=== PATIENT | male | born 1955 | race Caucasian/White ===

== ENCOUNTER 2017-01-23 11:34 | Inpatient (IN) | payer OTHER ==
[~2017-01-23] VITALS: Ht 172.7 cm; Wt 86.2 kg
[2017-01-23] MEDS ORDERED: NIAC500T5 PO (11:51)
[2017-01-23] MEDS ORDERED: LISI10TA3 PO (11:51)
[2017-01-23] MEDS ORDERED: CLOR3.755 PO (12:22)
[2017-01-23] MEDS ORDERED: MULT-135 PO (12:22)
[2017-01-23] MEDS ORDERED: ZOLO50TA PO (12:22)
[2017-01-23] MEDS ORDERED: ATOR20TA15 PO (12:22)
[2017-01-23] MEDS ORDERED: METF500T PO (12:22)
[2017-01-23] MEDS ORDERED: GLUC100017 PO (12:22)
[2017-01-23] MEDS ORDERED: ASPI1TAB69 PO (12:22)
[2017-02-02] MEDS ORDERED: CHLORHEXIDINE GLUCONATE 2 % 1 PACK (2 CLOTHS) TOPICAL PRN (05:45)
[2017-02-02] MEDS ORDERED: SODIUM CHLORID 0.9% 500 ML IV PRN (05:45)
[2017-02-02] MEDS ORDERED: POVIDONE IODINE 5% (ANTISEPSIS KIT) 4 APPLICATIONS EACH NARE PRN (05:45)
[2017-02-02] MEDS ORDERED: INSULIN HUMAN REGULAR 1,000 UNITS/10 ML VIAL SQ PRN (05:45)
[2017-02-02] MEDS ORDERED: LACTATED RINGER'S 1000 ML IV PRN (05:45)
[2017-02-02] MEDS ORDERED: METOPROLOL TARTRATE 25 MG TAB PO PRN (05:45)
[2017-02-02 05:47] VITALS: BP 161/95; PULSE 88; RESP 16; TEMP 97.9; O2SAT 96
[2017-02-02] MEDS ORDERED: GENTAMICIN SULFATE 80 MG/2 ML VIAL ONE (06:08)
[2017-02-02] MEDS ORDERED: EXPAREL PERI-ARTICULAR INJECTION (TOTAL VOL. 60 ML) P-ARTICULR SCH ×2 (06:30)
[2017-02-02] MEDS ORDERED: CHLORHEXIDINE GLUCONATE 4% SOLN 120 ML BTL TOPICAL SCH (06:30)
[2017-02-02] MEDS ORDERED: TRANEXAMIC ACID INJ 795 MG in SODIUM CHLORIDE 0.9% INJ 100 ML IV SCH ×2 (06:30→10:00)
[2017-02-02] MEDS ORDERED: FAMOTIDINE 20 MG/2 ML VIAL ONE (06:33)
[2017-02-02] MEDS ORDERED: MIDAZOLAM HCL 2 MG/2 ML VIAL ONE ×2 (06:33→06:39)
[2017-02-02] MEDS ORDERED: ACETAMINOPHEN 1000 MG/100 ML VIAL IV ONE (06:39)
[2017-02-02] MEDS ORDERED: fentaNYL CITRATE 250 MCG/5 ML AMP ONE (06:40)
[2017-02-02] MEDS ORDERED: ACETAMINOPHEN/HYDROcodone 325 MG/7.5 MG TAB PO PRN ×2 (06:45)
[2017-02-02] MEDS ORDERED: MAGNESIUM HYDROXIDE SUSP 30 ML CUP PO PRN (06:45)
[2017-02-02] MEDS ORDERED: SODIUM CHLORIDE 0.9% FLUSH 5 ML FLUSH IVF PRN (06:45)
[2017-02-02] MEDS ORDERED: ZOLPIDEM TARTRATE 5 MG TAB PO PRN (06:45)
[2017-02-02] MEDS ORDERED: TRANEXAMIC ACID INJ 0 MG in SODIUM CHLORIDE 0.9% INJ 100 ML IV SCH (06:45)
[2017-02-02] MEDS ORDERED: Post-op Orders (for Pharmacy) MISC XX ONE (06:45)
[2017-02-02] MEDS ORDERED: ONDANSETRON HCL 4 MG/2 ML VIAL IVP PRN (06:45)
[2017-02-02] MEDS ORDERED: BISACODYL 10 MG SUPP RECTAL PRN (06:45)
[2017-02-02] MEDS ORDERED: CLINDAMYCIN INJ 900 MG in SODIUM CHLORIDE 0.9% INJ 100 ML IV SCH (06:45)
[2017-02-02] MEDS ORDERED: CLINDAMYCIN PHOS 900 MG/6 ML VIAL ONE (06:46)
[2017-02-02] MEDS ORDERED: MORPHINE SULFATE 4 MG/ML INJ IV PUSH PRN (07:30)
[2017-02-02] MEDS ORDERED: CLORAZEPATE 3.75 MG PO (07:45)
[2017-02-02] MEDS ORDERED: [UNRECOGNIZED DRUG - OTHER] PO (07:45)
[2017-02-02] MEDS ORDERED: NIACIN 100 MG TAB PO SCH (09:00)
[2017-02-02] MEDS: metFORMIN HCL 500 MG TAB PO SCH ×2 (09:00→17:51)
[2017-02-02] MEDS: SODIUM CHLORIDE 0.9% FLUSH 5 ML FLUSH IVF SCH ×2 (09:00→21:00)
[2017-02-02] MEDS: SERTRALINE HCL 50 MG TAB PO SCH (09:00)
[2017-02-02] MEDS ORDERED: NON-FORMULARY DRUG (Glucosamine 1,000 MG) PO SCH (09:00)
[2017-02-02] MEDS: LISINOPRIL 10 MG TAB PO SCH (09:00)
[2017-02-02] MEDS: MULTIVITAMIN TAB PO SCH (09:00)
--- NOTE | 2017-02-02 09:24 | HHI.FF ---
Face to Face Verification Diagnosis: (1) Status post total replacement of left hip Physical Therapy Gait training Hip: Total hip, Protocol: Left, Posterior hip precautions, Progress to weight bearing Canvas Knee Splint: When in bed & 2 pillows btw thighs Left LE Weight Bearing: WB as tolerated Left LE Range of Motion: Active ROM Nursing Nursing: Dressing changes Dressing Changes: Daily dressing change, Coverderm/Primapore Additional Instructions Remove steristrips on postop day 14. I have seen patient Bryce Rodriguez on 02/02/17. My clinical findings support the need for the requested home health care services because: Ltd mobility - disease progression Limited ability to care for self High risk of falls I certify that my clinical findings support that this patient is homebound because: Post-op weakness Unsteady gait/balance Unsafe to leave home unassisted Ting Garcia MD (Charles) February 02, 2017 09:24
[2017-02-02] MEDS: LACTATED RINGER'S 1000 ML INJ 1,000 ML IV SCH ×2 (09:33→22:05)
--- NOTE | 2017-02-02 09:52 | RADRPT ---
EXAM DATE/TIME: 02/02/2017 09:28 [facility] COMPARISON: No previous studies available for comparison. INDICATIONS : Post op left total hip. MEDICAL HISTORY : None. SURGICAL HISTORY : None. ENCOUNTER: Initial ACUITY: 1 day PAIN SCORE: Non-responsive. LOCATION: Left hip FINDINGS: AP and crosstable lateral views of the left hip were obtained and demonstrate the patient status post total hip arthroplasty. The femoral and acetabular components are intact and in normal alignment. Th ere is overlying soft tissue swelling and gas. CONCLUSION: Expected postoperative changes status post arthroplasty. Rufus Stevens MD on February 02, 2017 at 9:50 Board Certified Radiologist. This report was verified electronically.
[2017-02-02] MEDS ORDERED: ONDANSETRON HCL 4 MG/2 ML VIAL IV PUSH ONE (10:34)
[2017-02-02] MEDS ORDERED: PROPOFOL 200 MG/20 ML AMP IV ONE (10:34)
[2017-02-02] MEDS ORDERED: ePHEDrine/NS 25 MG/5 ML SYR IV ONE (10:34)
[2017-02-02] MEDS ORDERED: PHENYLEPH/NS 1000 MCG/10 ML SYR IV ONE (10:34)
[2017-02-02] MEDS ORDERED: LACTATED RINGER'S 1000 ML INJ 1,000 ML IV ONE (10:35)
[2017-02-02] MEDS ORDERED: DO NOT ADM ANY ANTICOAGULANT DRUGS PRN (11:45)
[2017-02-02] MEDS: KETOROLAC TROMETHAMINE 30 MG/ML (IVP) VIAL IVP SCH ×2 (15:18→22:04)
[2017-02-02 15:58] VITALS: BP 118/72; PULSE 85; RESP 17; TEMP 96.9; O2SAT 97
--- NOTE | 2017-02-02 16:05 | PD.CONS ---
HPI Service [facility] Hospitalists Consult Requested By Dr. Garcia Reason for Consult Medical management Primary Care Physician Ayesha Law MD Diagnoses: (1) Primary osteoarthritis of left hip (2) Status post total replacement of left hip History of Present Illness Mr. Rodriguez is a 61-year-old male with a known history of type 2 diabetes mellitus, hypertension, dyslipidemia and osteoarthritis of the left hip who underwent a left total hip replacement today 02/02 by Jose Mallory. Hospitalist team has been consulted for medical management. Patient seen and examined. Patient awake, alert and oriented x 3, with no new acute complaints. He states that his pain is well controlled. Denies any recent fever, chills, cough, shortness of breath, abdominal pain, nausea, vomiting, or dizziness. Patient has been tolerating PO intake well. Has been out of bed walking the halls with the walker. Patient does state he has urinated post operatively with no difficulty or complaints. Afebrile. Review of Systems Except as stated in HPI: all other systems reviewed are Neg Past Family Social History Allergies: Coded Allergies: Penicillin (Verified Allergy, Severe, 02/02/17) Sulfa (Verified Allergy, Severe, 02/02/17) Past Medical History Hyperlipidemia Hypertension Dyslipidemia History of atypical chest discomfort and angina. Past Surgical History Circumcision Tonsillectomy Reported Medications Active Reported Glucosamine (Glucosamine Sulfate) 1,000 Mg Cap 1,000 Mg PO DAILY Multi Vitamin (Multiple Vitamin) 1 Tab Tab 1 Tab PO DAILY Zoloft (Sertraline HCl) 50 Mg Tab 50 Mg PO DAILY Clorazepate (Clorazepate Dipotassium) 3.75 Mg Tab 3.75 Mg PO BID PRN Atorvastatin (Atorvastatin Calcium) 20 Mg Tab 20 Mg PO HS Metformin (Metformin HCl) 500 Mg Tab 250 Mg PO BIDPC With meals Aspirin 81 Mg Tabdr 81 Mg PO DAILY Niacin 500 Mg Tab 1,000 Mg PO DAILY Lisinopril 10 Mg Tab 10 Mg PO DAILY Active Ordered Medications Current Medications Medications (Trade) Dose Ordered Sig/Cassia Route Start Time Stop Time Status Last Admin Chlorhexidine Gluconate 1 applic 1 applic ONCE TOPICAL 02/02/17 06:30 02/05/17 06:29 Tranexamic Acid 795 mg/Sodium Chloride 107.95 ml @ 200 mls/ hr ONCE IV 02/02/17 06:30 02/03/17 06:29 02/02/17 07:01 Tranexamic Acid 795 mg/Sodium Chloride 107.95 ml @ 200 mls/ hr ONCE IV 02/02/17 10:00 02/03/17 09:59 02/02/17 11:17 Bupivacaine Liposome 20 ml/ Sodium Chloride 60 ml @ 120 mls/hr ONCE P-ARTICULR 02/02/17 06:30 02/03/17 06:29 02/02/17 07:22 (Lr 1000 ml Inj) 1,000 ml @ 80 mls/hr [id number] IV 02/02/17 08:00 02/02/17 09:33 (NS Flush) 2 ml UNSCH PRN IVF 02/02/17 06:45 (NS Flush) 2 ml BID IVF 02/02/17 09:00 (Morphine Inj) 4 mg Q3H PRN IV PUSH 02/02/17 07:30 ([place] 7.5-325 Mg) 1 tab Q4H PRN PO 02/02/17 06:45 ([place] 7.5-325 Mg) 2 tab Q4H PRN PO 02/02/17 06:45 (Toradol Inj) 15 mg Q6H IVP 02/02/17 08:00 02/04/17 02:01 02/02/17 15:18 (Zofran Inj) 4 mg Q6H PRN IVP 02/02/17 06:45 (Colace) 100 mg BID PO 02/03/17 21:00 (Ambien) 5 mg HS PRN PO 02/02/17 06:45 (Dulcolax Supp) 10 mg DAILY PRN RECTAL 02/02/17 06:45 (Milk Of Magnesia Liq) 30 ml DAILY PRN PO 02/02/17 06:45 (Ecotrin Ec) 81 mg BID PO 02/03/17 09:00 (Lipitor) 20 mg HS PO 02/02/17 21:00 (Prinivil) 10 mg DAILY PO 02/02/17 09:00 (Glucophage) 250 mg BIDPC PO 02/02/17 09:00 (Theragran) 1 tab DAILY PO 02/02/17 09:00 (Zoloft) 50 mg DAILY PO 02/02/17 09:00 Patient Own Medication PT OWN MED: CLORAZEP... BID PRN PO 02/02/17 07:45 Hold Niacin 1000 mg 1,000 mg DAILY PO 02/02/17 09:00 (Cleocin Inj/NS Inj) 106 ml @ 200 mls/hr Q8H IV 02/02/17 15:00 02/03/17 07:32 Miscellaneous Information ALL NURSING DEPARTME... UNSCH PRN .XX 02/02/17 11:45 02/03/17 11:44 Family History Paternal medical history significant for diabetes mellitus, dyslipidemia and [place]. Father last year, 2015 from a heart attack and pulmonary embolism. Maternal medical history significant for diabetes and dyslipidemia. Social History Patient lives at home with . His primary work is in [employer] and he is also a animal rescuer. He denies any current tobacco use, does admit to quitting smoking 32 years ago. Admits to an occasional glass of wine a few days a week with dinner. Denies any illicit drug use. Physical Exam Vital Signs Vital Signs Date Time Temp Pulse Resp B/P Pulse Ox O2 Delivery O2 Flow Rate FiO2 02/02/17 15:58 96.9 85 17 118/72 97 02/02/17 12:30 98.2 93 16 126/75 95 Room Air 02/02/17 12:15 84 16 122/75 95 02/02/17 12:00 86 20 127/75 95 02/02/17 11:45 84 21 129/76 92 02/02/17 11:30 82 20 124/75 95 02/02/17 11:15 82 16 131/74 92 02/02/17 11:00 83 16 126/84 98 02/02/17 10:45 76 14 127/79 96 02/02/17 10:30 77 23 123/73 97 02/02/17 10:15 77 14 123/75 94 02/02/17 10:00 81 14 121/71 94 02/02/17 09:45 85 14 124/70 94 02/02/17 09:30 83 20 120/67 97 02/02/17 09:15 91 20 107/61 98 02/02/17 09:10 95.6 93 20 112/61 98 Room Air 02/02/17 05:47 97.9 88 16 161/95 96 Physical Exam GENERAL: A well-nourished, well-developed patient, in NAD. SKIN: No rashes, ecchymoses or lesions. Warm and dry. Status post left total hip replacement, dressing c/d/i. No swelling or erythema noted. Denies any paresthesia, numbness or tingling. HEENT: Atraumatic. Normocephalic. No temporal or scalp tenderness. Pupils equal round and reactive. Extraocular motions intact. No scleral icterus. No injection or drainage. Nose without bleeding, purulent drainage or septal hematoma. Throat without erythema, tonsillar hypertrophy or exudate. Uvula midline. Airway patent. NECK: Trachea midline. No JVD or lymphadenopathy. Supple, nontender, no meningeal signs. CARDIOVASCULAR: Regular rate and rhythm without murmurs, gallops, or rubs. RESPIRATORY: Clear to auscultation. Breath sounds equal bilaterally. No wheezes , rales, or rhonchi. GASTROINTESTINAL: Abdomen soft, non-tender, nondistended. No guarding. MUSCULOSKELETAL: Extremities without clubbing, cyanosis, or edema. No joint tenderness, effusion, or edema noted. NEUROLOGICAL: Awake and alert. Cranial nerves II through XII intact. Motor and sensory grossly within normal limits. Normal speech. Laboratory Laboratory Tests Test 02/02/17 05:55 Blood Type O POSITIVE Antibody Screen NEGATIVE Blood Bank Comment Imaging Last Impressions Hip X-Ray 02/02/17 0641 Signed Impressions: Service Date/Time: Thursday, February 02, 2017 09:28 - CONCLUSION: Expected postoperative changes status post arthroplasty. Rufus Stevens MD Assessment and Plan Assessment and Plan Mr. Rodriguez is a 61-year-old male with a known history of type 2 diabetes mellitus, hypertension and dyslipidemia who underwent a left total hip replacement today 02/02 by Jose Mallory. Left total hip replacement - Post op day today 02/02. Control pain, Toradol 15 mg IV Q6hr scheduled. [place] PO PRN per pain scale. Monitor for constipation. Laxatives PRN. Monitor nausea, Zofran PRN. - Clindamycin 900 mg IV Q8h x 3. - Wound changes per surgery recommendations. Hypertension, controlled - High risk for coronary artery disease. Continue aspirin 81 mg PO daily. - Continue Lisinopril 10 mg PO daily. - Monitor closely. Control pain. Continue Type 2 Diabetes Mellitus - Continue home medication Metformin 250 mg PO BIDPC. Add ISS, as noted uncontrolled BS. - Monitor with ACCU checks. Dyslipidemia: Continue home Lipitor. DVT prophylaxis: SCDs/TEDs. Chemical prophylaxis per surgeon recommendations. Written by Katherine Howe, acting as scribe for Dr. Nunez on 02/02/17 at 16:05. This note was transcribed by scribe Katherine CHAVARRIA. I, Dr. Katrin Nunez personally performed the history, physical exam, and medical decision making; and confirmed the accuracy of the information in the transcribed note. Authenticated by Dr. Katrin Nunez on 02/02/17 at 16:05. Katherine Howe February 02, 2017 16:05 Katrin Nunez MD February 02, 2017 18:15
[2017-02-02] MEDS: CLINDAMYCIN INJ 900 MG in SODIUM CHLORIDE 0.9% INJ 100 ML IV SCH ×2 (16:15→23:24)
[2017-02-02] MEDS ORDERED: DEXTROSE 50% IN WATER 50 ML VIAL(D50) IV PRN (17:00)
[2017-02-02] MEDS ORDERED: GLUCAGON 1 MG/ML VIAL OTHER PRN (17:00)
[2017-02-02] MEDS ORDERED: NIACIN 500 MG EXTENDED RELEASE TAB PO SCH (18:00)
[2017-02-02 19:54] VITALS: O2SAT 97
[2017-02-02 20:00] VITALS: BP 145/84; PULSE 95; RESP 16; TEMP 98.6; O2SAT 95
[2017-02-02] MEDS: INSULIN ASPART SUPPLEMENTAL SCALE SQ SCH (21:00)
[2017-02-02] MEDS ORDERED: ATORVASTATIN 20 MG TAB PO SCH (21:00)
[2017-02-02 23:25] VITALS: BP 133/84; PULSE 87; RESP 16; TEMP 98.6; O2SAT 93
[2017-02-03 04:10] VITALS: BP 138/81; PULSE 87; RESP 16; TEMP 98.1; O2SAT 93
--- NOTE | 2017-02-03 06:07 | PD.ORT.PN ---
Subjective Post Op Day #: 1 Subjective Remarks He is doing well. There is almost no pain. He has been OOB to the bathroom. Distance Walked 45 feet twice. Objective Vitals Vital Signs Date Time Temp Pulse Resp B/P Pulse Ox O2 Delivery O2 Flow Rate FiO2 02/03/17 04:10 98.1 87 16 138/81 93 02/02/17 23:25 98.6 87 16 133/84 93 02/02/17 20:00 98.6 95 16 145/84 95 02/02/17 19:54 97 21 02/02/17 15:58 96.9 85 17 118/72 97 02/02/17 12:30 98.2 93 16 126/75 95 Room Air 02/02/17 12:15 84 16 122/75 95 02/02/17 12:00 86 20 127/75 95 02/02/17 11:45 84 21 129/76 92 02/02/17 11:30 82 20 124/75 95 02/02/17 11:15 82 16 131/74 92 02/02/17 11:00 83 16 126/84 98 02/02/17 10:45 76 14 127/79 96 02/02/17 10:30 77 23 123/73 97 02/02/17 10:15 77 14 123/75 94 02/02/17 10:00 81 14 121/71 94 02/02/17 09:45 85 14 124/70 94 02/02/17 09:30 83 20 120/67 97 02/02/17 09:15 91 20 107/61 98 02/02/17 09:10 95.6 93 20 112/61 98 Room Air I/O 02/02/17 02/02/17 02/02/17 02/03/17 02/03/17 02/03/17 07:00 15:00 23:00 07:00 15:00 23:00 Intake Total 1600 ml 480 ml Output Total 100 ml 400 ml Balance 1500 ml 80 ml Intake Oral 480 ml Other 1600 ml Output Urine Total 400 ml Estimated Blood Loss 100 ml # Bowel Movements 0 Imaging Hip x-rays look good. Last 24 hours Impressions Hip X-Ray 02/02/17 0641 Signed Impressions: Service Date/Time: Thursday, February 02, 2017 09:28 - CONCLUSION: Expected postoperative changes status post arthroplasty. Rufus Stevens MD Objective Remarks He is resting comfortably, supine in bed. The neurovascular status is intact. The dressing is dry and intact. Assessment & Plan Ortho Post Op Day #: 1 Problem List: (1) Status post total replacement of left hip Plan: Continue postop care and PT. Assessment and Plan Condition: Good. Orthopaedically stable. DVT prophylaxis: TEDs, sequentials, ASA. Discharge plans: Home with [facility]. Has appointment. Rx: [place] 7.5/325 Ting Garcia MD (Charles) February 03, 2017 06:07
[2017-02-03] MEDS ORDERED: HYDR-3580 PO (06:09)
[2017-02-03] MEDS ORDERED: ASPI81TA11 PO (06:09)
[2017-02-03] MEDS: INSULIN ASPART SUPPLEMENTAL SCALE SQ SCH ×2 (07:00→11:00)
[2017-02-03] MEDS: CLINDAMYCIN INJ 900 MG in SODIUM CHLORIDE 0.9% INJ 100 ML IV SCH (07:12)
[2017-02-03 07:40] LABS: HEMATOCRIT 35.6 % (39.0-51.0); REVIEW FLAG FINAL
[2017-02-03 08:00] VITALS: BP 143/83; PULSE 96; RESP 19; TEMP 97.8; O2SAT 95
[2017-02-03] MEDS: LISINOPRIL 10 MG TAB PO SCH (08:40)
[2017-02-03] MEDS: SERTRALINE HCL 50 MG TAB PO SCH (08:40)
[2017-02-03] MEDS: MULTIVITAMIN TAB PO SCH (08:40)
[2017-02-03] MEDS: KETOROLAC TROMETHAMINE 30 MG/ML (IVP) VIAL IVP SCH ×2 (08:41→14:00)
[2017-02-03] MEDS: metFORMIN HCL 500 MG TAB PO SCH (08:41)
[2017-02-03] MEDS: SODIUM CHLORIDE 0.9% FLUSH 5 ML FLUSH IVF SCH (08:41)
[2017-02-03] MEDS ORDERED: ASPIRIN EC 81 MG TABEC PO SCH (09:00)
--- NOTE | 2017-02-03 09:04 | HHI.PR ---
Subjective Remarks Patient's is walking in the room says he has no pain at this time. No fever or chills overnight. No nausea, vomiting, diarrhea or constipation. Says he had a bowel movement before coming for surgery yesterday. No chest pain or shortness of breath. Objective Vitals Vital Signs Date Time Temp Pulse Resp B/P Pulse Ox O2 Delivery O2 Flow Rate FiO2 02/03/17 08:00 97.8 96 19 143/83 95 02/03/17 04:10 98.1 87 16 138/81 93 02/02/17 23:25 98.6 87 16 133/84 93 02/02/17 20:00 98.6 95 16 145/84 95 02/02/17 19:54 97 21 02/02/17 15:58 96.9 85 17 118/72 97 02/02/17 12:30 98.2 93 16 126/75 95 Room Air 02/02/17 12:15 84 16 122/75 95 02/02/17 12:00 86 20 127/75 95 02/02/17 11:45 84 21 129/76 92 02/02/17 11:30 82 20 124/75 95 02/02/17 11:15 82 16 131/74 92 02/02/17 11:00 83 16 126/84 98 02/02/17 10:45 76 14 127/79 96 02/02/17 10:30 77 23 123/73 97 02/02/17 10:15 77 14 123/75 94 02/02/17 10:00 81 14 121/71 94 02/02/17 09:45 85 14 124/70 94 02/02/17 09:30 83 20 120/67 97 02/02/17 09:15 91 20 107/61 98 02/02/17 09:10 95.6 93 20 112/61 98 Room Air I/O 02/02/17 02/02/17 02/02/17 02/03/17 02/03/17 02/03/17 06:59 14:59 22:59 06:59 14:59 22:59 Intake Total 1600 ml 480 ml 240 ml Output Total 100 ml 400 ml 975 ml Balance 1500 ml 80 ml -735 ml Intake Oral 480 ml 240 ml Other 1600 ml Output Urine Total 400 ml 975 ml Estimated Blood Loss 100 ml # Bowel Movements 0 0 Result Diagram: 02/03/17 0654 Imaging Last Impressions Hip X-Ray 02/02/17 0641 Signed Impressions: Service Date/Time: Thursday, February 02, 2017 09:28 - CONCLUSION: Expected postoperative changes status post arthroplasty. Rufus Stevens MD Objective Remarks GENERAL: This is a very pleasant 61-year-old male, well-nourished, well- developed patient, in NAD. SKIN: No rashes, ecchymoses or lesions. Warm and dry. Status post left total hip replacement, dressing c/d/i. No swelling or erythema noted. Denies any paresthesia, numbness or tingling. HEENT: Atraumatic. Normocephalic. No temporal or scalp tenderness. Pupils equal round and reactive. Extraocular motions intact. No scleral icterus. No injection or drainage. Nose without bleeding, purulent drainage or septal hematoma. Throat without erythema, tonsillar hypertrophy or exudate. Uvula midline. Airway patent. NECK: Trachea midline. No JVD or lymphadenopathy. Supple, nontender, no meningeal signs. CARDIOVASCULAR: Regular rate and rhythm without murmurs, gallops, or rubs. RESPIRATORY: Clear to auscultation. Breath sounds equal bilaterally. No wheezes , rales, or rhonchi. GASTROINTESTINAL: Abdomen soft, non-tender, nondistended. No guarding. MUSCULOSKELETAL: Status post left total hip replacement, dressing CDI. Extremities without clubbing, cyanosis, or edema. No joint tenderness, effusion , or edema noted. NEUROLOGICAL: Awake and alert. Cranial nerves II through XII intact. Motor and sensory grossly within normal limits. Normal speech. A/P Problem List: (1) Primary osteoarthritis of left hip ICD Code: M16.12 Status: Acute (2) Status post total replacement of left hip ICD Code: Z96.642 Status: Acute Assessment and Plan Mr. Rodriguez is a 61-year-old male with a known history of type 2 diabetes mellitus, hypertension and dyslipidemia who underwent a left total hip replacement today 02/02 by Jose Mallory. OA with Left total hip replacement -S/P Left total hip replacement 02/02. Control pain, Toradol 15 mg IV Q6hr scheduled. [place] PO PRN per pain scale. Monitor for constipation. Laxatives PRN. Monitor nausea, Zofran PRN. - Clindamycin 900 mg IV Q8h x 3. - Wound changes per surgery recommendations. Hypertension, controlled - High risk for coronary artery disease. Continue aspirin 81 mg PO daily. - Continue Lisinopril 10 mg PO daily. - Monitor closely. Control pain. Continue Type 2 Diabetes Mellitus - Continue home medication Metformin 250 mg PO BIDPC. Add ISS, as noted uncontrolled BS. - Monitor with ACCU checks. Dyslipidemia: Continue home Lipitor. DVT prophylaxis: SCDs/TEDs. Chemical prophylaxis per surgeon recommendations. Thank you for this consultation Stable medically. Follow-up with PCP as outpatient Discharge Planning Discharge when cleared by Orthopedic doctor Katrin Nunez MD February 03, 2017 09:04
--- NOTE | 2017-02-03 09:42 | MP ---
cc: Andrei CASEY. DATE OF SURGERY 02/02/2017 PREOPERATIVE DIAGNOSIS Primary osteoarthritis left hip. POSTOPERATIVE DIAGNOSIS Primary osteoarthritis left hip. OPERATION PERFORMED Left total hip arthroplasty with [place] prosthesis using a mini posterior approach. SURGEON Oleg Casey MD SOLUTION DESIGN ENGINEER MAYA CoreyA ANESTHESIA Spinal with supplemental local. INDICATIONS AND FINDINGS This 61-year-old man has a 4-year history of progressively worsening left hip pain to the point that he has only a limited ambulation tolerance. He has difficulty with any position changes. 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 He continues to work and he needs to be without pain in order to do so. He has been treated in the past with anti-inflammatory agents, analgesics, activity modification, exercises, ambulatory aids, physical therapy without improvement. Physical findings showed significant loss of range of motion in the hip with tenderness on motion. X-rays show severe osteoarthritis with joint space narrowing to [id number] on the AP view with a flattened femoral head and femoral head and acetabular osteophytes. Operative findings were consistent with the radiographic findings with there being loss of articular cartilage to exposed subchondral bone on both sides of the joint with some osteophytes more on the femoral head than the acetabulum. PROSTHESIS USED [place] prosthesis with the acetabulum being a size 50 Tritanium Cluster Cup, the liner being a 32-mm inner diameter 0-degree X3 polyethylene Trident liner. There were two cancellus screws used. The femoral component was an Accolade II, size 4 x 132 degree neck angle. The head was a 32-mm outer diameter Biolox Delta ceramic head with a +0 mm neck length. PROCEDURE The patient was brought to the clean-air operating suite and a spinal anesthetic was administered. He received prophylactic antibiotics in the form of clindamycin and also received tranexamic acid. These were done according to protocol. He was then placed in lateral position on a Biomet lateral positioner with the left hip up and an axillary roll under the right shoulder. The left hip was then prepped with alcohol, Hibiclens and Chloraprep and draped in the usual manner with the hip draped free. An appropriate time-out procedure was carried out. Local anesthesia was administered into the incision site prior to making the incision. A posterior lateral incision was then made approximately 12 cm in length over the posterior lateral aspect of the greater trochanter. The incision was deepened through the subcutaneous tissues to the fascia so and gluteus fascia which were incised in line with fibers and the skin incision. The Charnley retractor was placed with wound towels. The sciatic nerve was identified and protected throughout the procedure. With the hip internally rotated, the external rotators were released off the posterior aspect of the capsule with electrocautery. The capsulotomy was carried out with a posteriorly based flap. Hemostasis was achieved throughout the procedure with electrocautery. The hip was dislocated. The femoral neck was transected with the oscillating saw. The femoral head was removed. Femoral preparation was initiated with a box osteotome followed by canal-finding curette. Broaching was started at size 0 and went in one size increments up to size 4. Calcar planing was carried out. The hip was then repositioned. The acetabulum was exposed. The acetabular soft tissues were debrided and removed. Reaming was started with the size 43-mm reamer and went in 1-mm increments up to size 50. At size 50 a trial prosthesis was impacted and appeared to be appropriate. After this was removed, the size 50 Tritanium cluster cup was impacted into place and seated appropriately. Two drill holes were made followed by placement of appropriate size screws. The liner was inserted and impacted into place after irrigation. Local anesthesia was administered about the anterior, superior and inferior capsule at the acetabulum and the femur. A trial reduction was carried out with a -4 and the +0 neck lengths. The latter was appropriate. There was pistoning with the -4. The broach was removed. The actual prosthesis which was an Accolade II femoral component size 4 x 132 degrees was chosen. After irrigating the medullary canal of the femur, the prosthesis was inserted and seated appropriately. A trial reduction was carried out with the +0 neck length, 32-mm head trial. The stability was excellent. The leg length was appropriate. The range of motion was excellent. There was no pistoning. A Biolox Delta head size 32 mm outer diameter with +0 neck length was chosen. This was placed onto a cleaned and dried trunnion. When this was seated, the hip was reduced. The stability was comparable to that with the trial. The remainder of the Exparel was injected throughout the hip. The external rotators and capsule were repaired to the posterior aspect of the greater trochanter with transosseous screws using a Krackow technique and with transosseous sutures. When the posterior capsule was repaired, this appeared appropriate. The sciatic nerve was inspected. The fascia so and gluteus fascia were repaired with #1 Vicryl interrupted [id number] sutures. The subcutaneous tissues were closed with 2-0 Vicryl interrupted simple sutures with buried knots. The skin was closed with continuous subcuticular closure of 4-0 Monocryl. The wound was dressed with Steri-Strips followed by dry dressing, ABD pads, Medipore compression dressing. The leg was placed into a knee immobilizer. The patient was transferred to the recovery room in satisfactory condition having tolerated the procedure well. COUNTS Correct. SPECIMENS None. ESTIMATED BLOOD LOSS 100 mL. CMD ERIN Valiente/SRINIVAS /9:15 AM /9:21 AM
[2017-02-03 12:00] VITALS: BP 142/80; PULSE 106; RESP 17; TEMP 98.2; O2SAT 95
[2017-02-03 16:00] VITALS: BP 142/74; PULSE 92; RESP 16; TEMP 98.1; O2SAT 96
[2017-02-03] MEDS ORDERED: DOCUSATE SODIUM 100 MG CAP PO SCH (21:00)
== END 2017-02-03 17:03 | disposition home health service (06) | DRG 470 ==
LOC: HSDI 02-02 05:17 → N06B 02-02 12:49
PROVIDERS: ADMIT Orthopaedic Surgery; ATTEND Orthopaedic Surgery
PROC: 0SRB02A Replacement of Left Hip Joint with Metal on Polyethylene Synthetic Substitute, Uncemented, Open Approach (ICD-10-PCS; principal; 2017-02-02 06:38)
DX: M16.12 Unilateral primary osteoarthritis, left hip (principal); I10 Essential (primary) hypertension; E78.5 Hyperlipidemia, unspecified; E11.9 Type 2 diabetes mellitus without complications; Z79.84 Long term (current) use of oral hypoglycemic drugs; Z85.828 Personal history of other malignant neoplasm of skin; Z79.82 Long term (current) use of aspirin; Z87.891 Personal history of nicotine dependence
CPT/HCPCS: 73502; 82948; 85014; 85018; 86850; 86900; 86901; 94150; C1776; C9290; J0131; J1580; J1815; J1885; J2250; J2370; J2405; J3010; J7120; L1830

== ENCOUNTER → 2017-01-23 | Outpatient (CLI) | payer OTHER ==
[~2017-01-23] MED LIST: ASPI1TAB69 PO; ASPI81TA11 PO; ATOR10; ATOR10TA15 PO; ATOR20TA15 PO; CLOR3.755 PO; GLUC100017 PO; HYDR-3580 PO; LISI10TA3 PO; METF500T PO; MULT-135 PO; NIAC500; NIAC500T5 PO; PRIN10TA; ZOLO50TA PO
[2017-01-23 12:14] LABS: HEMATOCRIT 40.8 % (39.0-51.0); MEAN CELL VOLUME 90.7 FL (80.0-100.0); MEAN CORPUSCULAR HEMOGLOBIN 30.4 PG (27.0-34.0); MEAN CORPUSCULAR HGB CONC 33.5 % (32.0-36.0); PLATELET COUNT 257 TH/MM3 (150-450); RED CELL DISTRIBUTION WIDTH 12.7 % (11.6-17.2); REVIEW FLAG FINAL; WHITE BLOOD COUNT 6.7 TH/MM3 (4.0-11.0)
[2017-01-23 12:27] LABS: APTT (PATIENT) 25.1 SEC (24.3-30.1); PROTHROMBIN TIME - PATIENT 10.7 SEC (9.8-11.6)
[2017-01-23 12:28] LABS: BLOOD, URINE NEG (NEG); COMMENT (UR) CULT NOT INDICATED; CULTURE IF INDICATED CULT NOT INDICATED; GLUCOSE,URINE NEG (NEG); KETONE, URINE NEG (NEG); MUCUS URINE FEW /lpf (OCC); NITRITE,URINE NEG (NEG); SQUAMOUS EPITHELIAL CELL URINE <1 /hpf (0-5); URINE COLOR YELLOW (YELLW/STRAW)
[2017-01-23 12:44] LABS: BICARBONATE 27.2 MEQ/L (21.0-32.0); POTASSIUM 4.1 MEQ/L (3.5-5.1)
--- NOTE | 2017-01-27 14:36 | EKG ---
Date Performed: 01/23/2017 Time Performed: 12:05:58 PTAGE: 61 years EKG: Sinus rhythm WITH SINUS ARRHYTHMIA Since previous tracing, no significant change noted NORMAL ECG PREVIOUS TRACING : 09/19/2004 11.05 DOCTOR: Yo Landry Interpretating Date/Time 01/27/2017 14:34:09
== END ==
LOC: CPRE 11:30
PROVIDERS: ATTEND Orthopaedic Surgery
DX: Z01.810 Encounter for preprocedural cardiovascular examination (principal); Z01.812 Encounter for preprocedural laboratory examination; M16.12 Unilateral primary osteoarthritis, left hip; I10 Essential (primary) hypertension; M79.609 Pain in unspecified limb
CPT/HCPCS: 36415; 80048; 81001; 85027; 85610; 85730; 93005

== ENCOUNTER → 2017-05-28 | Outpatient (CLI) | payer OTHER ==
[~2017-05-28] MED LIST changes: +ASPI-99 PO; -ATOR10; -ATOR10TA15 PO; +MULTTAB67 PO; -NIAC500; -PRIN10TA
[2017-05-28 08:51] LABS: HEMATOCRIT 43.1 % (39.0-51.0); MEAN CELL VOLUME 91.2 FL (80.0-100.0); MEAN CORPUSCULAR HEMOGLOBIN 30.6 PG (27.0-34.0); MEAN CORPUSCULAR HGB CONC 33.5 % (32.0-36.0); PLATELET COUNT 246 TH/MM3 (150-450); RED BLOOD COUNT 4.73 MIL/MM3 (4.50-5.90); RED CELL DISTRIBUTION WIDTH 13.7 % (11.6-17.2); REVIEW FLAG FINAL
[2017-05-28 08:59] LABS: APTT (PATIENT) 25.6 SEC (24.3-30.1); PROTHROMBIN TIME - PATIENT 10.7 SEC (9.8-11.6)
[2017-05-28 08:59] LABS: BLOOD, URINE NEG (NEG); COMMENT (UR) CULT NOT INDICATED; CULTURE IF INDICATED CULT NOT INDICATED; GLUCOSE,URINE NEG (NEG); KETONE, URINE NEG (NEG); MUCUS URINE FEW /lpf (OCC); NITRITE,URINE NEG (NEG); PH, URINE 5.5 (5.0-8.5); URINE COLOR YELLOW (YELLW/STRAW)
[2017-05-28 09:32] LABS: BICARBONATE 26.4 MEQ/L (21.0-32.0); POTASSIUM 4.1 MEQ/L (3.5-5.1)
== END ==
LOC: CPRE 08:10
PROVIDERS: ATTEND Orthopaedic Surgery
DX: Z01.810 Encounter for preprocedural cardiovascular examination (principal); M16.11 Unilateral primary osteoarthritis, right hip; M79.609 Pain in unspecified limb
CPT/HCPCS: 36415; 80048; 81001; 85027; 85610; 85730

== ENCOUNTER 2017-06-08 05:11 | Inpatient (IN) | payer OTHER ==
[~2017-06-08] VITALS: Ht 172.7 cm; Wt 79.4 kg
[~2017-06-08 05:11] MED LIST changes: -ASPI-99 PO; -ASPI1TAB69 PO; -MULTTAB67 PO
[2017-06-08] MEDS ORDERED: SODIUM CHLORID 0.9% 500 ML IV PRN (05:30)
[2017-06-08] MEDS ORDERED: LACTATED RINGER'S 1000 ML IV PRN (05:30)
[2017-06-08] MEDS ORDERED: CHLORHEXIDINE GLUCONATE 2 % 1 PACK (2 CLOTHS) TOPICAL PRN (05:30)
[2017-06-08] MEDS ORDERED: METOPROLOL TARTRATE 25 MG TAB PO PRN (05:30)
[2017-06-08] MEDS ORDERED: INSULIN HUMAN REGULAR 1,000 UNITS/10 ML VIAL SQ PRN (05:30)
[2017-06-08] MEDS ORDERED: POVIDONE IODINE 5% (ANTISEPSIS KIT) 4 APPLICATIONS EACH NARE PRN (05:30)
[2017-06-08] MEDS ORDERED: CHLORHEXIDINE GLUCONATE 4% SOLN 120 ML BTL TOPICAL SCH (05:45)
[2017-06-08] MEDS ORDERED: EXPAREL PERI-ARTICULAR INJECTION (TOTAL VOL. 60 ML) P-ARTICULR SCH ×2 (06:00)
[2017-06-08] MEDS ORDERED: TRANEXAMIC ACID INJ 799 MG in SODIUM CHLORIDE 0.9% INJ 100 ML IV SCH ×4 (06:00)
[2017-06-08] MEDS ORDERED: MULTTAB67 PO (06:02)
[2017-06-08] MEDS ORDERED: GENTAMICIN SULFATE 80 MG/2 ML VIAL ONE (06:11)
[2017-06-08] MEDS ORDERED: ceFAZolin 2 GM PREMIX 50 ML ONE (06:36)
[2017-06-08] MEDS ORDERED: MIDAZOLAM HCL 2 MG/2 ML VIAL ONE (06:44)
[2017-06-08] MEDS ORDERED: FAMOTIDINE 20 MG/2 ML VIAL ONE (06:44)
[2017-06-08] MEDS ORDERED: ONDANSETRON HCL 4 MG/2 ML VIAL IVP PRN (06:45)
[2017-06-08] MEDS ORDERED: ZOLPIDEM TARTRATE 5 MG TAB PO PRN (06:45)
[2017-06-08] MEDS ORDERED: MORPHINE SULFATE 8 MG/ML INJ IV PUSH PRN (06:45)
[2017-06-08] MEDS ORDERED: ACETAMINOPHEN/HYDROcodone 325 MG/7.5 MG TAB PO PRN ×2 (06:45)
[2017-06-08] MEDS ORDERED: BISACODYL 10 MG SUPP RECTAL PRN (06:45)
[2017-06-08] MEDS ORDERED: MAGNESIUM HYDROXIDE SUSP 30 ML CUP PO PRN (06:45)
[2017-06-08] MEDS ORDERED: TRANEXAMIC ACID INJ 0 MG in SODIUM CHLORIDE 0.9% INJ 100 ML IV SCH (06:45)
[2017-06-08] MEDS ORDERED: Post-op Orders (for Pharmacy) MISC XX ONE (06:45)
[2017-06-08] MEDS ORDERED: SODIUM CHLORIDE 0.9% FLUSH 5 ML FLUSH IVF PRN (06:45)
[2017-06-08] MEDS ORDERED: ASPI-99 PO (06:50)
--- NOTE | 2017-06-08 06:52 | HHI.FF ---
Face to Face Verification Diagnosis: (1) Status post total hip replacement, right Physical Therapy Gait training Hip: Total hip, Protocol: Right, Posterior hip precautions, Progress to weight bearing Canvas Knee Splint: When in bed & 2 pillows btw thighs Right LE Weight Bearing: WB as tolerated Right LE Range of Motion: Active ROM Nursing Nursing: Dressing changes Dressing Changes: Daily dressing change, Coverderm/Primapore Additional Instructions Remove steristrips on postop day 14. I have seen patient Bryce Rodriguez on 06/08/17. My clinical findings support the need for the requested home health care services because: Ltd mobility - disease progression Limited ability to care for self High risk of falls I certify that my clinical findings support that this patient is homebound because: Post-op weakness Unsteady gait/balance Unsafe to leave home unassisted Ting Garcia MD (Charles) Jun 08, 2017 06:52
[2017-06-08] MEDS ORDERED: ceFAZolin 2 GM PREMIX 50 ML IV SCH (07:00)
[2017-06-08] MEDS ORDERED: DIAZEPAM 2 MG TAB PO PRN (07:30)
[2017-06-08] MEDS: LISINOPRIL 10 MG TAB PO SCH (09:00)
[2017-06-08] MEDS: SODIUM CHLORIDE 0.9% FLUSH 5 ML FLUSH IVF SCH ×2 (09:00→20:39)
[2017-06-08] MEDS: ASPIRIN EC 81 MG TABEC PO SCH ×2 (09:00→20:39)
[2017-06-08] MEDS ORDERED: NON-FORMULARY DRUG (Glucosamine 1,000 MG) PO SCH (09:00)
--- NOTE | 2017-06-08 10:16 | RADRPT ---
EXAM DATE/TIME: 06/08/2017 09:43 [facility] COMPARISON: No previous studies available for comparison. INDICATIONS : Post op total right hip. MEDICAL HISTORY : None. SURGICAL HISTORY : None. ENCOUNTER: Initial ACUITY: 1 day PAIN SCORE: 0/10 LOCATION: Right Hip FINDINGS: Patient has a right total hip arthroplasty. Femoral and acetabular components appear well-seated. No obvious fractures. CONCLUSION: Satisfactory appearance of right hip arthroplasty. Lance Belcher MD on June 08, 2017 at 10:15 Board Certified Radiologist. This report was verified electronically.
--- NOTE | 2017-06-08 10:30 | MP ---
cc: Andrei CASEY. DATE OF SURGERY 06/08/2017 PREOPERATIVE DIAGNOSIS Primary osteoarthritis right hip. POSTOPERATIVE DIAGNOSIS Primary osteoarthritis right hip. OPERATION PERFORMED Right total hip arthroplasty with [place] prosthesis via posterior superior approach. SURGEON Oleg Casey MD ANESTHESIA Spinal with supplemental local. INDICATIONS AND FINDINGS This 61-year-old man has a 4-1/2 year history of right hip pain, progressively worsening and increasing as he ambulates. He can only walk a short distance because of the pain and has had aberration in his gait. 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 He has pain during the day after planed an organ. 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 Treatment has included anti-inflammatory agents, analgesics, activity modification, exercise, ambulatory aids and physical therapy. This has not helped. PHYSICAL FINDINGS Limitation of motion with an antalgic gait and tenderness on motion. X-rays show loss of articular cartilage to [id number] with osteophytes and eburnation. OPERATIVE FINDINGS Changes consistent with the radiographic findings with there being osteophytes and eburnation and loss of articular cartilage. The femoral head was slightly flattened. PROSTHESIS USED Mehreen prosthesis with the femur being an Accolade II femoral component, size 4 x 132 degrees with the femoral head being a Biolox Delta ceramic head size 32mm outer diameter, -4 mm neck length and the acetabulum being a Tritanium cluster hole shell with two screws and a liner of X3 polyethylene, size 32 mm inner diameter, 0-degree. PROCEDURE The patient was brought to the clean-air operating suite and a spinal anesthetic was administered. [facility] the right hip up. He was then prepped with alcohol, Hibiclens and Chloraprep and draped in the usual manner with the hip draped free. He received prophylactic antibiotics in the form of Ancef and also received tranexamic acid. An appropriate time-out procedure was carried out. A posterior lateral incision was made from the mid-trochanteric area proximally in line with the gluteus yeny/gluteus medius area. The incision was deepened through the subcutaneous tissues to the gluteus fascia and a portion of the fascia so. When this was exposed, a gluteus yeny incision was then made splitting the fibers and going down to the soft tissues underneath. Retractors were placed. The fat pad posteriorly was debrided. The conjoined tendon of the piriformis and obturator were released off the posterior aspect of the greater trochanter and reflected. A capsulotomy was carried out superiorly and carried distally. The hip was dislocated. The femoral neck was transected at the appropriate level and femoral head removed. Hemostasis was achieved throughout the procedure with electrocautery. The femur was then prepared using a box osteotome followed by a canal finding curette and serial reaming starting from a size 0 to a size 4 stem. With the stem in place, calcar planing was completed. The hip was repositioned. Attention was then directed to the acetabulum. The soft tissues were debrided from the acetabulum. Reaming was started with 43 mm and went to 45 mm and then subsequently in 1-mm increments to 49 mm. A 50 mm trial did seat. This was then removed. The 50 mm Tritanium cluster hole cup was impacted into place and seated appropriately. Drill holes were made into the fenestrations and an appropriate-size screws inserted. The liner was inserted. Local anesthetic was administered throughout the acetabular and femoral areas. The trial reduction was carried out with a 132 degrees neck. This appeared to be appropriate. This was dislocated. Femoral broach and trial were removed. The actual femoral prosthesis was then impacted into place after irrigating the medullary canal with pulse lavage. When this was seated appropriately a trial reduction was carried out with -4 mm neck. There was no pistoning. The stability was excellent. The mobility was excellent. The leg lengths were appropriate. The head was then removed. The trunnion was dried. The Biolox Delta head was then impacted onto the cleaned and dried trunnion and seated appropriately. The hip was then reduced. The stability was excellent. The mobility was excellent. There was no pistoning. The leg lengths appeared to be appropriate. Wound closure then commenced using #1 Vicryl continuous lock suture to repair the capsule to the femoral neck and trochanter. #1 Vicryl transosseous sutures were then used with a Krackow technique to bring the rest of the capsule and the conjoined tendon of the obturator and piriformis tendons into position posterior in the obturator fossa. The sciatic nerve was unmolested. Fascia so and gluteus fascia were repaired with #1 Vicryl interrupted [id number] sutures. Subcutaneous tissues were closed with 2-0 Vicryl interrupted simple sutures with buried knots. The skin was closed with a continuous subcuticular closure of 4-0 Monocryl. The wound was dressed with Steri-Strips followed by dry dressing and Steri-Strips, followed by dry dressing and Medipore compression dressing. He was then transferred from the operating room to the recovery room in satisfactory condition having tolerated the procedure well. Counts were correct. Specimens none. Estimated blood loss 100 mL. MD ERIN Cole/SRINIVAS /9:51 AM /10:07 AM
[2017-06-08] MEDS: LACTATED RINGER'S 1000 ML INJ 1,000 ML IV SCH ×2 (10:50→19:13)
[2017-06-08] MEDS: KETOROLAC TROMETHAMINE 30 MG/ML (IVP) VIAL IVP SCH ×2 (12:00→18:21)
[2017-06-08] MEDS ORDERED: PHENYLEPH/NS 1000 MCG/10 ML SYR IV ONE (12:00)
[2017-06-08] MEDS ORDERED: ePHEDrine/NS 25 MG/5 ML SYR IV ONE (12:00)
[2017-06-08] MEDS ORDERED: PROPOFOL 200 MG/20 ML AMP IV ONE (12:00)
[2017-06-08] MEDS ORDERED: LACTATED RINGER'S 1000 ML INJ 2,000 ML IV ONE (12:00)
[2017-06-08 13:02] VITALS: BP 145/91; PULSE 80; RESP 17; TEMP 96.7; O2SAT 95
[2017-06-08] MEDS: SERTRALINE HCL 50 MG TAB PO SCH (14:02)
[2017-06-08] MEDS: MULTIVITAMIN TAB PO SCH (14:02)
[2017-06-08] MEDS: metFORMIN HCL 500 MG TAB PO SCH ×2 (14:05→18:22)
--- NOTE | 2017-06-08 15:48 | PD.CONS ---
[facility] By [facility]. martin Reason for Consult medical management Primary Care Physician Ayesha Law MD Diagnoses: History of Present Illness Patient is a very pleasant 61-year-old male very active and works as a funeral arranger who is admitted under Dr. Garcia's service today and underwent right hip replacement. Patient states have been having increasing pain on this right hip for the past few months now and had to have to use a walker or cane for long distances. Increasing difficulty in ambulating and increasing pain prompted this consult and electively admitted for surgery. Patient had a left hip replacement done in February 02. Patient with history of hypertension hyperlipidemia diabetes type 2. Checks his blood sugars regularly and ranges from 117 to 150s. Patient states good hypoglycemic awareness. [facility] consulted for medical management. Patient's primary care doctor is Dr.R. Law. Review of Systems Constitutional: DENIES: Diaphoretic episodes, Fatigue, Fever, Weight gain, Weight loss, Chills, Dizziness, Change in appetite, Night Sweats Endocrine: DENIES: Heat/cold intolerance, Polydipsia, Polyuria, Polyphagia Eyes: DENIES: Blurred vision, Diplopia, Eye inflammation, Eye pain, Vision loss , Photosensitivity, Double Vision Respiratory: DENIES: Apneas, Cough, Snoring, Wheezing, Hemoptysis, Sputum production, Shortness of breath Cardiovascular: DENIES: Chest pain, Palpitations, Syncope, Dyspnea on Exertion , PND, Lower Extremity Edema, Orthopnea, Claudication Gastrointestinal: DENIES: Abdominal pain, Black stools, Bloody stools, Constipation, Diarrhea, Nausea, Vomiting, Difficulty Swallowing, Anorexia Genitourinary: DENIES: Sexual dysfunction, Urinary frequency, Urinary incontinence, Urgency, Hematuria, Dysuria, Nocturia, Penile Discharge, Testicular Pain, Testicular Swelling Musculoskeletal: COMPLAINS OF: Joint pain (right hip) Integumentary: DENIES: Abnormal pigmentation, Nail changes, Pruritus, Rash Hematologic/lymphatic: DENIES: Bruising, Lymphadenopathy Immunologic/allergic: DENIES: Eczema, Urticaria Neurologic: DENIES: Abnormal gait, Headache, Localized weakness, Paresthesias, Seizures, Speech Problems, Tremor, Poor Balance Psychiatric: DENIES: Anxiety, Confusion, Mood changes, Depression, Hallucinations, Agitation, Suicidal Ideation, Homicidal Ideation, Delusions Past Family Social History Allergies: Coded Allergies: Sulfa (Sulfonamide Antibiotics) (Unverified Allergy, Severe, 06/08/17) penicillin G (Unverified Allergy, Severe, 06/08/17) Past Medical History Hypertension Hyperlipidemia Diabetes type 2 Anxiety disorder Past Surgical History February 02 left hip replacement History of tonsillectomy Reported Medications As outpatient atorvastatin 20 mg at bedtime Niacin Lisinopril Hydrocodone when necessary clorazepate aspirin Active Ordered Medications See EMR Family History Nonsmoker Occasional wine at dinner Social History Nonsmoker Occasional wine at dinnertime Physical Exam Vital Signs Vital Signs Date Time Temp Pulse Resp B/P (MAP) Pulse Ox O2 Delivery O2 Flow Rate FiO2 06/08/17 13:14 16 06/08/17 13:02 96.7 80 17 145/91 (109) 95 06/08/17 12:40 97.8 68 16 133/82 (99) 96 Room Air 06/08/17 12:00 68 16 128/73 (91) 96 Room Air 06/08/17 11:30 68 16 123/69 (87) 94 Room Air 06/08/17 11:00 97.4 67 15 126/69 (88) 94 Room Air 06/08/17 10:45 75 16 116/72 (87) 94 Room Air 06/08/17 10:30 60 17 111/69 (83) 100 Room Air 06/08/17 10:15 62 15 110/68 (82) 96 Room Air 06/08/17 10:00 66 15 110/66 (81) 100 Nasal Cannula 2 06/08/17 09:45 81 15 103/62 (76) 100 Nasal Cannula 2 06/08/17 09:38 96.2 06/08/17 09:38 96.2 73 17 102/67 (79) 100 Nasal Cannula 2 06/08/17 06:09 98.3 81 16 157/94 (115) 96 Physical Exam GENERAL: This is a well-nourished, well-developed patient, in no apparent distress. SKIN: No rashes, ecchymoses or lesions. Cool and dry. HEAD: Atraumatic. Normocephalic. EYES: Pupils equal round and reactive. Extraocular motions intact. No scleral icterus. ENT: Nose without bleeding. Airway patent. NECK: Trachea midline. No JVD or lymphadenopathy. Supple, nontender, no meningeal signs. CARDIOVASCULAR: Regular rate and rhythm without murmurs, gallops, or rubs. RESPIRATORY: Clear to auscultation. Breath sounds equal bilaterally. No wheezes , rales, or rhonchi. GASTROINTESTINAL: Abdomen soft, non-tender, nondistended. No hepato-splenomegaly , or palpable masses. No guarding. MUSCULOSKELETAL: Extremities without clubbing, cyanosis, or edema. No joint tenderness, effusion, or edema noted. No calf tenderness. Negative Homans sign bilaterally. Right hip postop dressing in place NEUROLOGICAL: Awake and alert. Cranial nerves II through XII intact. Motor and sensory grossly within normal limits. Five out of 5 muscle strength in all muscle groups. Normal speech. Imaging Last Impressions Hip X-Ray 06/08/17 0000 Signed Impressions: Service Date/Time: Thursday, June 08, 2017 09:43 - CONCLUSION: Satisfactory appearance of right hip arthroplasty. Lance Belcher MD Assessment and Plan Assessment and Plan 61-year-old male admitted for Status post right total hip arthroplasty 06/08 Orthopedic service is following PT consulted. Hypertension. continue on lisinopril History of hyperlipidemia continue on atorvastatin and niacin. History of anxiety/depression continue on Zoloft and clorazepate Diabetes type 2 . Check blood sugars twice a day. on metformin DVT prophylaxis per Ortho- on aspirin. Discharge planning patient wants to go home with outpatient/home physical therapy. Patient states had all DME sent home. Discussed Condition With Patient Demetrius Guerra MD Jun 08, 2017 15:48
[2017-06-08 16:00] VITALS: BP 151/82; PULSE 82; RESP 18; TEMP 96.4; O2SAT 99
[2017-06-08] MEDS ORDERED: NIACIN 500 MG EXTENDED RELEASE TAB PO SCH (18:00)
[2017-06-08 20:45] VITALS: BP 145/86; PULSE 92; RESP 17; TEMP 99.2; O2SAT 96
[2017-06-08] MEDS ORDERED: ATORVASTATIN 20 MG TAB PO SCH (21:00)
[2017-06-09] MEDS: KETOROLAC TROMETHAMINE 30 MG/ML (IVP) VIAL IVP SCH ×2 (00:13→06:54)
[2017-06-09 00:44] VITALS: BP 143/87; PULSE 93; RESP 16; TEMP 99.7; O2SAT 97
[2017-06-09 04:35] VITALS: BP 130/71; PULSE 81; RESP 16; TEMP 98.3; O2SAT 95
[2017-06-09 06:53] LABS: HEMATOCRIT 33.5 % (39.0-51.0); REVIEW FLAG FINAL
[2017-06-09 08:00] VITALS: BP 131/75; PULSE 81; RESP 18; TEMP 98.5; O2SAT 94
--- NOTE | 2017-06-09 08:06 | PD.ORT.PN ---
Subjective Post Op Day #: 1 Subjective Remarks He is doing well but has a bit more pain than the left side. Pain level is 1. Distance Walked 75 feet with PT. Objective Vitals Vital Signs Date Time Temp Pulse Resp B/P (MAP) Pulse Ox O2 Delivery O2 Flow Rate FiO2 06/09/17 04:35 98.3 81 16 130/71 (90) 95 06/09/17 00:44 99.7 93 16 143/87 (105) 97 06/08/17 20:45 99.2 92 17 145/86 (105) 96 06/08/17 16:00 96.4 82 18 151/82 (105) 99 06/08/17 13:14 16 06/08/17 13:02 96.7 80 17 145/91 (109) 95 06/08/17 12:40 97.8 68 16 133/82 (99) 96 Room Air 06/08/17 12:00 68 16 128/73 (91) 96 Room Air 06/08/17 11:30 68 16 123/69 (87) 94 Room Air 06/08/17 11:00 97.4 67 15 126/69 (88) 94 Room Air 06/08/17 10:45 75 16 116/72 (87) 94 Room Air 06/08/17 10:30 60 17 111/69 (83) 100 Room Air 06/08/17 10:15 62 15 110/68 (82) 96 Room Air 06/08/17 10:00 66 15 110/66 (81) 100 Nasal Cannula 2 06/08/17 09:45 81 15 103/62 (76) 100 Nasal Cannula 2 06/08/17 09:38 96.2 06/08/17 09:38 96.2 73 17 102/67 (79) 100 Nasal Cannula 2 I/O 06/08/17 06/08/17 06/08/17 06/09/17 06/09/17 06/09/17 07:00 15:00 23:00 07:00 15:00 23:00 Intake Total 2480 ml 240 ml 240 ml Output Total 100 ml 600 ml 400 ml Balance 2380 ml -360 ml -160 ml Intake Oral 480 ml 240 ml 240 ml IV Total 2000 ml Output Urine Total 600 ml 400 ml Estimated Blood Loss 100 ml # Voids 1 # Bowel Movements 0 0 0 Result Diagram: 06/09/17 0559 Imaging Last 72 hours Impressions Hip X-Ray 06/08/17 0000 Signed Impressions: Service Date/Time: Thursday, June 08, 2017 09:43 - CONCLUSION: Satisfactory appearance of right hip arthroplasty. Lance Belcher MD Objective Remarks He is resting comfortably, supine in bed. The neurovascular status is intact. The dressing is dry and intact. Assessment & Plan Ortho Post Op Day #: 1 Problem List: (1) Status post total hip replacement, right ICD Codes: Z96.641 - Presence of right artificial hip joint Status: Acute Plan: Continue postop care and PT/OT. Assessment and Plan Condition: Good. Orthopaedically stable. DVT prophylaxis: TEDs, ASA, sequentials. Discharge plans: Home with [facility]. Has appointment. Rx: [facility] 7.5/325. Ting Garcia MD (Charles) Jun 09, 2017 08:05
[2017-06-09] MEDS: LISINOPRIL 10 MG TAB PO SCH (08:16)
[2017-06-09] MEDS: MULTIVITAMIN TAB PO SCH (08:16)
[2017-06-09] MEDS: ASPIRIN EC 81 MG TABEC PO SCH (08:16)
[2017-06-09] MEDS: SERTRALINE HCL 50 MG TAB PO SCH (08:16)
[2017-06-09] MEDS: metFORMIN HCL 500 MG TAB PO SCH (08:16)
[2017-06-09] MEDS: SODIUM CHLORIDE 0.9% FLUSH 5 ML FLUSH IVF SCH (08:17)
[2017-06-09] MEDS ORDERED: HYDR-3580 PO (08:28)
--- NOTE | 2017-06-09 09:38 | HHI.PR ---
Subjective Remarks pain- well controlled motivated with physical therapy- set up at home- equipments- home health Nursing and PT Objective Vitals Vital Signs Date Time Temp Pulse Resp B/P (MAP) Pulse Ox O2 Delivery O2 Flow Rate FiO2 06/09/17 04:35 98.3 81 16 130/71 (90) 95 06/09/17 00:44 99.7 93 16 143/87 (105) 97 06/08/17 20:45 99.2 92 17 145/86 (105) 96 06/08/17 16:00 96.4 82 18 151/82 (105) 99 06/08/17 13:14 16 06/08/17 13:02 96.7 80 17 145/91 (109) 95 06/08/17 12:40 97.8 68 16 133/82 (99) 96 Room Air 06/08/17 12:00 68 16 128/73 (91) 96 Room Air 06/08/17 11:30 68 16 123/69 (87) 94 Room Air 06/08/17 11:00 97.4 67 15 126/69 (88) 94 Room Air 06/08/17 10:45 75 16 116/72 (87) 94 Room Air 06/08/17 10:30 60 17 111/69 (83) 100 Room Air 06/08/17 10:15 62 15 110/68 (82) 96 Room Air 06/08/17 10:00 66 15 110/66 (81) 100 Nasal Cannula 2 06/08/17 09:45 81 15 103/62 (76) 100 Nasal Cannula 2 06/08/17 09:38 96.2 06/08/17 09:38 96.2 73 17 102/67 (79) 100 Nasal Cannula 2 I/O 06/08/17 06/08/17 06/08/17 06/09/17 06/09/17 06/09/17 07:00 15:00 23:00 07:00 15:00 23:00 Intake Total 2480 ml 240 ml 240 ml Output Total 100 ml 600 ml 400 ml Balance 2380 ml -360 ml -160 ml Intake Oral 480 ml 240 ml 240 ml IV Total 2000 ml Output Urine Total 600 ml 400 ml Estimated Blood Loss 100 ml # Voids 1 # Bowel Movements 0 0 0 Result Diagram: 06/09/17 0559 Imaging Last Impressions Hip X-Ray 06/08/17 0000 Signed Impressions: Service Date/Time: Thursday, June 08, 2017 09:43 - CONCLUSION: Satisfactory appearance of right hip arthroplasty. Lance Belcher MD Objective Remarks awake and alert lungs clear regular rhythm abdomen soft right hip- post op dressing in place- no surrounding cellulitis good peripheral pulses no calf tenderness Procedures right total hip arthroplasty A/P Assessment and Plan 61-year-old male admitted for Status post right total hip arthroplasty 06/08 Orthopedic service is following PT ff. Hypertension. continue on lisinopril History of hyperlipidemia continue on atorvastatin and niacin. History of anxiety/depression continue on Zoloft and clorazepate Diabetes type 2 . Check blood sugars twice a day. on metformin- restart as OP DVT prophylaxis per Ortho- on aspirin. DC today- DME/[facility] all set up FF up with PCP- Demetrius Rosenthal MD Jun 09, 2017 09:38
[2017-06-09 12:00] VITALS: BP_SYST 142; BP_SYST 99; BP_DIAS 54; BP_DIAS 73; PULSE 79; PULSE 86; RESP 18; TEMP 96.3; TEMP 97.6; O2SAT 96; O2SAT 97
[2017-06-09] MEDS ORDERED: DOCUSATE SODIUM 100 MG CAP PO SCH (21:00)
== END 2017-06-09 18:06 | disposition home or self-care (01) | DRG 470 ==
LOC: HSDI 05:11 → N06B 12:50
PROVIDERS: ADMIT Orthopaedic Surgery; ATTEND Orthopaedic Surgery
PROC: 0SR904A Replacement of Right Hip Joint with Ceramic on Polyethylene Synthetic Substitute, Uncemented, Open Approach (ICD-10-PCS; principal; 2017-06-08 06:46)
DX: M16.11 Unilateral primary osteoarthritis, right hip (principal); I10 Essential (primary) hypertension; E78.5 Hyperlipidemia, unspecified; F41.9 Anxiety disorder, unspecified; F32.9 Major depressive disorder, single episode, unspecified; E11.9 Type 2 diabetes mellitus without complications; Z79.84 Long term (current) use of oral hypoglycemic drugs
CPT/HCPCS: 73502; 85014; 85018; 86850; 86900; 86901; C1776; C9290; J0690; J1580; J1885; J2250; J2370; J7120; L1830